=== PATIENT | female | born 1990 | race African-American/Black ===

== ENCOUNTER 2017-12-15 09:51 | Observation (INO) ==
[2017-12-15 10:22] LABS: BASOPHILS % (AUTO) 0.2 % (0.2-1.0); EOSINOPHILS # (AUTO) 0.1 x10^3/uL (0.0-0.2); EOSINOPHILS % (AUTO) 0.6 % (0.9-2.9); HEMATOCRIT 42.1 % (36.0-47.0); HEMOGLOBIN 14.9 g/dL (12.0-16.0); LYMPHOCYTES # (AUTO) 0.7 X10^3/uL (1.3-2.9); MEAN CORPUSCULAR HEMOGLOBIN 29.5 pg (27.0-34.0); MEAN CORPUSCULAR HGB CONC 35.4 g/dL (33.0-35.0); MEAN CORPUSCULAR VOLUME 83.5 fL (80.0-100.0); MEAN PLATELET VOLUME 10.4 fL (7.4-11.0); MONOCYTES # (AUTO) 0.4 x10^3/uL (0.3-0.8); MONOCYTES % (AUTO) 2.6 % (0.0-13.0); NEUTROPHILS # (AUTO) 15.5 x10^3/uL (2.2-4.8); NEUTROPHILS % (AUTO) 92.6 % (42.0-75.0); PLATELET COUNT 156 X10^3/uL (150.0-450.0); RED BLOOD COUNT 5.04 X10^6/uL (3.5-5.4); RED CELL DISTRIBUTION WIDTH 13.1 % (11.6-16.5); WHITE BLOOD COUNT 16.8 X10^3/uL (3.6-10.0)
[2017-12-15 10:31] LABS: PLATELET MORPHOLOGY COMMENT NORMAL (NORMAL)
--- NOTE | 2017-12-15 10:46 | DR.EXTPAIN ---
HPI - Time seen Time seen: 10:25 - PCP Primary Care Physician: [facility] - Complaint/Symptoms Chief Complaint Doctor Comments: Patient presents with complaint of right lower extremity is red swollen for few days and tender. She states that this has occured previous but the left lower extremity was involved. She also states that she has a family history of lymph edema of lower extreimty. Chief Complaint:: PT STATED HER RIGHT LOWER LEG STARTED SWELLING AND HURTING YESTERDAY. SHE STATED THIS HAPPEN LAST YEAR AND WAS IN THE HOSPITAL IN [place] FOR CELLULITIS - Source History Provided: Patient - Mode of arrival Mode of Arrival: Ambulatory - Timing Onset of Chief Complaint: 12/14/17 - Context History of: None - Associated signs and symptoms Associated Signs and Symptoms: Pain, Swelling PMH - PMH Past Medical History: No Past Medical History: Anemia Past Surgical History: Yes Surgical History: - Family History History of Family Medical Conditions: No Family Medical History: Cancer - Social History Does patient currently use any type of tobacco product: No Have you used tobacco products in the last 12 months: No Type of Tobacco Use: None How many years tobacco product used: 5 Does any household member use tobacco: No Alcohol Use: Rarely, Occasionally Do you use any recreational Drugs:: No Lives With: Family Lives Where: Home - infectious screening In the last 2 months have you had wt loss of >10#?: NO Have you had fever, night sweats or hemotysis?: No Have you traveled outside the country in the last 6 months?: No Isolation: Standard ROS - Review of Systems Eyes: No Symptoms Reported ENTM: No Symptoms Reported Respiratoy: No Symptoms Reported Cardiovascular: No Symptoms Reported Gastrointestinal/Abdominal: No Symptoms Reported Genitourinary: No Symptoms Reported Neurological: No Symptoms Reported Musculoskeletal: No Symptoms Reported Integumentary: Change in Color (right lower extremity) Hematologic/Lymphatic: No Symptoms Reported Endocrine: No Symptoms Reported Psychiatric: No Symptoms Reported PE - General Limitations: Physical Limitation (right leg pain) General Appearance: Alert, In No Apparent Distress - Head Head Exam: Normal Inspection, Atraumatic - Eyes Eye exam: Normal Appearance, PERRL, EOMI - ENT ENT Exam: Normal Exam - Neck Neck Exam: Normal Inspection, Full ROM - Chest Chest Inspection: Normal Inspection, Symmetric Chest Wall Rise - Respiratory Respiratory Exam: Bilateral Clear to Auscultation - Cardiovascular Cardiovascular Exam: Regular Rate, Normal Rhythm - Abdominal Exam Abdominal Exam: Normal Inspection, Normal Bowel Sounds Abdominal Tenderness: negative: RUQ, RLQ, LUQ, LLQ, Epigastrium, Suprapubic, Diffuse, Mild, Moderate, Severe, Other - Extremities Extremities Exam: Normal Inspection, Full ROM - Upper Extremities Shoulder Exam: Normal Inspection, Full ROM Arm Exam: Normal Inspection Elbow Exam: Normal Inspection Forearm Exam: Normal Inspection Hand Exam: Normal Inspection Neuromotor Exam: Normal Exam Neurosensory Exam: Normal Exam, Ulnar Nerve Upper Ext. Vascular Exam: Capillary Refill - Lower Extremities Hip/Pelvis Exam: Tenderness (right below knee 44.5cm cir), Erythema (right below knee) Upper Leg Exam: Normal Inspection Knee Exam: Normal Inspection Lower Leg Exam: Normal Inspection (39.5cm) Ankle Exam: Normal Inspection Foot/Toe Exam: Normal Inspection Neurovascular/Tendon Exam: Normal Capillary Refill Gait Exam: Observed and Normal - Back Back Exam: Normal Inspection - Neurological Neurological Exam: Alert, Oriented X3, CN II-XII Intact - Psychiatric Psychiatric Exam: Normal Affect, Normal Mood - Skin Skin Exam: Warm, Dry, Erythema (right below knee) - Vital Signs Vitals: Temperature 99.1 F Pulse Rate [Apical] 93 Pulse Rate 143 Respiratory Rate 20 Blood Pressure [Right Arm] 127/72 Blood Pressure [Left Arm] 105/59 Blood Pressure 99/60 O2 Sat by Pulse Oximetry 99 Course - Reevaluation 1st: Unchanged - Consultation Called: 13:35 (Dr Mendez agreed to admit ) ROR - Labs Reviewed Laboratory Results Reviewed?: Yes (low potassium) Result Diagrams: 12/15/17 10:10 12/15/17 10:40 - XRAY XRAY Interpreted by: Radiologist (Lower extremity negative for DVT) - EKG [place]: Normal Rhythm: NSR Block: None Hypertrophy: None ST: Normal - Labs Reviewed Laboratory: WBC 16.8 X10^3/uL (3.6-10.0) H 12/15/17 10:10 RBC 5.04 X10^6/uL (3.5-5.4) 12/15/17 10:10 Hgb 14.9 g/dL (12.0-16.0) 12/15/17 10:10 Hct 42.1 % (36.0-47.0) 12/15/17 10:10 MCV 83.5 fL (80.0-100.0) 12/15/17 10:10 MCH 29.5 pg (27.0-34.0) 12/15/17 10:10 MCHC 35.4 g/dL (33.0-35.0) H 12/15/17 10:10 RDW 13.1 % (11.6-16.5) 12/15/17 10:10 Plt Count 156 X10^3/uL (150.0-450.0) 12/15/17 10:10 Plt Count Comment Adequate (ADEQUATE) 12/15/17 10:10 MPV 10.4 fL (7.4-11.0) 12/15/17 10:10 Neut % (Auto) 92.6 % (42.0-75.0) H 12/15/17 10:10 Lymph % (Auto) 4.0 % (21.0-51.0) L 12/15/17 10:10 [place] % (Auto) 2.6 % (0.0-13.0) 12/15/17 10:10 Eos % (Auto) 0.6 % (0.9-2.9) L 12/15/17 10:10 Baso % (Auto) 0.2 % (0.2-1.0) 12/15/17 10:10 Neut # (Auto) 15.5 x10^3/uL (2.2-4.8) H 12/15/17 10:10 Lymph # (Auto) 0.7 X10^3/uL (1.3-2.9) L 12/15/17 10:10 [place] # (Auto) 0.4 x10^3/uL (0.3-0.8) 12/15/17 10:10 Eos # (Auto) 0.1 x10^3/uL (0.0-0.2) 12/15/17 10:10 Baso # (Auto) 0.0 X10^3/uL (0.0-0.1) 12/15/17 10:10 Absolute Nucleated RBC 0.0 /100WBC 12/15/17 10:10 Total Counted 100 12/15/17 10:10 Neutrophils % (Manual) 94 % (39-76) H 12/15/17 10:10 Lymphocytes % (Manual) 5 % (13-43) L 12/15/17 10:10 Monocytes % (Manual) 1 % (4-9) L 12/15/17 10:10 Plt Morphology Comment Normal (NORMAL) 12/15/17 10:10 RBC Morphology Normal (NORMAL) 12/15/17 10:10 D-Dimer 763 ng/mL (0-400) H* 12/15/17 10:40 Sodium 137 mmol/L (136-145) 12/15/17 10:40 Corrected Sodium 137 mmol/L (136-145) 12/15/17 10:40 Potassium 3.0 mmol/L (3.5-5.1) L* 12/15/17 10:40 Chloride 102 mmol/L (98-107) 12/15/17 10:40 Carbon Dioxide 28.4 mmol/L (21-32) 12/15/17 10:40 BUN 6 mg/dL (7-18) L 12/15/17 10:40 Creatinine 0.87 mg/dL (0.55-1.02) 12/15/17 10:40 Est GFR (MDRD) Af Amer > 60 (>60) 12/15/17 10:40 Est GFR (MDRD) Non-Af > 60 (>60) 12/15/17 10:40 Glucose 113 mg/dL (65-99) H 12/15/17 10:40 Calcium 8.6 mg/dL (8.5-10.1) 12/15/17 10:40 C-Reactive Protein 256.50 mg/L (0-3.0) H 12/15/17 10:40 - Diagnosis Discharge Problem: Cellulitis of right lower extremity, Hypokalemia - Discharge Plan Disposition: ADMITTED INPATIENT Condition: Stable - Follow ups/Referrals Follow ups/Referrals: ASHLI MEDRANO [Primary Care Provider] - 3 days - Instructions
[2017-12-15 10:59] LABS: BLOOD UREA NITROGEN 6 mg/dL (7-18); CALCIUM 8.6 mg/dL (8.5-10.1); CARBON DIOXIDE 28.4 mmol/L (21-32); CHLORIDE 102 mmol/L (98-107); COR NA(FOR HYPERGLY) 137 mmol/L (136-145); CREATININE 0.87 mg/dL (0.55-1.02); SODIUM 137 mmol/L (136-145); eGFR NON BLACK RACES > 60 (>60)
[2017-12-15] MEDS ORDERED: K-LYTE EFFERVESCENT PO ONE (11:54)
[2017-12-15] MEDS ORDERED: K-LYTE EFFERVESCENT ONE (11:59)
[2017-12-15] MEDS ORDERED: MORPHINE SULFATE INJ 4 MG IVP ONE (12:03)
[2017-12-15] MEDS ORDERED: MORPHINE SULFATE INJ 4 MG ONE (12:04)
[2017-12-15] MEDS ORDERED: K-DUR TAB 20 MEQ PO ONE ×2 (12:16→12:20)
[2017-12-15] MEDS ORDERED: MICRO K EXTEN CAP 10 MEQ PO ONE ×2 (12:17→12:20)
--- NOTE | 2017-12-15 13:15 | VAS ---
HISTORY: Right lower extremity swelling and redness Study: Bilateral lower extremity venous Doppler Comparison: None Technique: Multiple grayscale sonographic images were obtained. Color duplex Doppler evaluation was p erformed. Findings: Bilaterally there is patency of the common femoral veins, superficial femoral veins, popliteal veins. The examination is negative for deep venous thrombosis in both lower extremities. IMPRESSION: Exam bilaterally negative for deep venous thrombosis in the lower extremities Reported By:
[2017-12-15] MEDS ORDERED: MOTRIN TAB 600 MG PO PRN (13:51)
[2017-12-15] MEDS ORDERED: PHENERGAN TAB 25 MG PO PRN (13:51)
[2017-12-15] MEDS ORDERED: ZOFRAN INJ 4 MG VIAL IVP PRN (13:53)
[2017-12-15] MEDS ORDERED: POTASSIUM CHLORIDE IV SCH ×2 (14:00)
[2017-12-15] MEDS ORDERED: D5W IV SCH ×2 (14:00)
[2017-12-15 14:11] LABS: BILIRUBIN,URINE 1+ (NEGATIVE); BLOOD/HEMOGLOBIN,URINE 5+ (NEGATIVE); GLUCOSE, URINE NEGATIVE (NEGATIVE); KETONES,URINE 1+ (NEGATIVE); LEUKOCYTE ESTERASE ,URINE 1+ (NEGATIVE); NITRITES,URINE NEGATIVE (NEGATIVE); PROTEIN,URINE 2+ (NEGATIVE); UROBILINOGEN,URINE 3+ (NORMAL)
[2017-12-15 14:13] LABS: APPEARANCE,URINE HAZY (CLEAR); COLOR,URINE DARK YELLOW (YELLOW)
[2017-12-15 14:18] LABS: SQUAMOUS EPITHELIAL CELL,UR MODERATE /HPF (NEGATIVE)
[2017-12-15 14:19] LABS: BACTERIA,URINE TRACE /HPF (NEGATIVE); MUCUS,URINE MODERATE /HPF (NEGATIVE)
[2017-12-15] MEDS ORDERED: NS 1/2 + KCL 20 MEQ/L 0 ML IV ONE (14:37)
[2017-12-15] MEDS ORDERED: VANCOMYCIN HCL 1 GM VIAL ONE (14:41)
[2017-12-15] MEDS ORDERED: D5W 250 ML IV 250 ML IV ONE (14:42)
[2017-12-15] MEDS: VANCOMYCIN HCL 1 GM VIAL 1 G in D5W 250 ML IV 250 ML IV SCH ×2 (14:43→21:32)
[2017-12-15] MEDS: NS + KCL 20 MEQ/L 1,000 ML IV SCH ×2 (14:44→23:00)
[2017-12-15 15:28] VITALS: BMI 41.3
[2017-12-15] MEDS ORDERED: POTASSIUM CHL 60 MEQ/NS 0.45% 500 ML IV PRN (15:52)
[2017-12-15] MEDS ORDERED: K-RIDER 10 MEQ/NS 100 ML 10 MEQ/100 ML BAG IV PRN (15:52)
[2017-12-15] MEDS ORDERED: K-LYTE EFFERVESCENT PO PRN ×2 (15:52→15:53)
[2017-12-15] MEDS ORDERED: POTASSIUM CHL 40 MEQ/NS 0.45% 500 ML IV PRN (15:52)
[2017-12-15] MEDS ORDERED: POTASSIUM CHLORIDE LIQ 20 MEQ UDC PO PRN ×2 (15:52→15:53)
[2017-12-15] MEDS ORDERED: K-DUR TAB 20 MEQ PO PRN (15:53)
[2017-12-15] MEDS: MORPHINE SULFATE INJ 4 MG IVP PRN (22:58)
[2017-12-16] MEDS: NS + KCL 20 MEQ/L 1,000 ML IV SCH (06:03)
[2017-12-16 06:09] LABS: BASOPHILS % (AUTO) 0.3 % (0.2-1.0); EOSINOPHILS # (AUTO) 0.5 x10^3/uL (0.0-0.2); EOSINOPHILS % (AUTO) 4.4 % (0.9-2.9); HEMATOCRIT 41.5 % (36.0-47.0); HEMOGLOBIN 14.3 g/dL (12.0-16.0); LYMPHOCYTES # (AUTO) 1.4 X10^3/uL (1.3-2.9); LYMPHOCYTES % (AUTO) 12.2 % (21.0-51.0); MEAN CORPUSCULAR HEMOGLOBIN 29.1 pg (27.0-34.0); MEAN CORPUSCULAR HGB CONC 34.5 g/dL (33.0-35.0); MEAN CORPUSCULAR VOLUME 84.3 fL (80.0-100.0); MEAN PLATELET VOLUME 10.8 fL (7.4-11.0); MONOCYTES # (AUTO) 0.6 x10^3/uL (0.3-0.8); MONOCYTES % (AUTO) 5.5 % (0.0-13.0); NEUTROPHILS % (AUTO) 77.6 % (42.0-75.0); PLATELET COUNT 137 X10^3/uL (150.0-450.0); RED BLOOD COUNT 4.93 X10^6/uL (3.5-5.4); RED CELL DISTRIBUTION WIDTH 13.2 % (11.6-16.5); WHITE BLOOD COUNT 11.6 X10^3/uL (3.6-10.0)
[2017-12-16 06:23] LABS: PLATELET MORPHOLOGY COMMENT NORMAL (NORMAL)
[2017-12-16 07:09] LABS: ALANINE AMINOTRANSFERASE 15 Units/L (12-78); ALBUMIN 2.6 g/dL (3.4-5.0); ALKALINE PHOSPHATASE 53 Units/L (46-116); ASPARTATE AMINO TRANSFERASE 14 Units/L (15-37); BLOOD UREA NITROGEN 7 mg/dL (7-18); CALCIUM 8.5 mg/dL (8.5-10.1); CARBON DIOXIDE 20.8 mmol/L (21-32); CHLORIDE 106 mmol/L (98-107); COR CA(FOR HYPOALB) 9.6 mg/dL (8.5-10.1); CREATININE 0.66 mg/dL (0.55-1.02); SODIUM 137 mmol/L (136-145); TOTAL PROTEIN 6.6 g/dL (6.4-8.2); eGFR NON BLACK RACES > 60 (>60)
[2017-12-16] MEDS: VANCOMYCIN HCL 1 GM VIAL 1 G in D5W 250 ML IV 250 ML IV SCH ×2 (08:29→23:55)
[2017-12-16] MEDS: MORPHINE SULFATE INJ 4 MG IVP PRN ×3 (08:30→23:00)
[2017-12-16 23:42] LABS: CREATININE 0.71 mg/dL (0.55-1.02); VANCOMYCIN,TROUGH 3.3 ug/mL (15-20)
[2017-12-17] MEDS ORDERED: BENADRYL CAP/TAB 25 MG PO ONE ×2 (02:09→15:25)
[2017-12-17 05:29] LABS: BASOPHILS % (AUTO) 0.4 % (0.2-1.0); EOSINOPHILS # (AUTO) 0.4 x10^3/uL (0.0-0.2); HEMATOCRIT 38.9 % (36.0-47.0); HEMOGLOBIN 13.5 g/dL (12.0-16.0); LYMPHOCYTES # (AUTO) 1.2 X10^3/uL (1.3-2.9); LYMPHOCYTES % (AUTO) 15.8 % (21.0-51.0); MEAN CORPUSCULAR HEMOGLOBIN 29.1 pg (27.0-34.0); MEAN CORPUSCULAR HGB CONC 34.8 g/dL (33.0-35.0); MEAN CORPUSCULAR VOLUME 83.5 fL (80.0-100.0); MEAN PLATELET VOLUME 10.5 fL (7.4-11.0); MONOCYTES # (AUTO) 0.6 x10^3/uL (0.3-0.8); MONOCYTES % (AUTO) 7.5 % (0.0-13.0); NEUTROPHILS # (AUTO) 5.2 x10^3/uL (2.2-4.8); NEUTROPHILS % (AUTO) 71.3 % (42.0-75.0); PLATELET COUNT 168 X10^3/uL (150.0-450.0); RED BLOOD COUNT 4.66 X10^6/uL (3.5-5.4); RED CELL DISTRIBUTION WIDTH 13.3 % (11.6-16.5); WHITE BLOOD COUNT 7.4 X10^3/uL (3.6-10.0)
[2017-12-17 05:54] LABS: ALANINE AMINOTRANSFERASE 31 Units/L (12-78); ALBUMIN 2.5 g/dL (3.4-5.0); ALKALINE PHOSPHATASE 54 Units/L (46-116); ASPARTATE AMINO TRANSFERASE 14 Units/L (15-37); BLOOD UREA NITROGEN 4 mg/dL (7-18); CALCIUM 8.3 mg/dL (8.5-10.1); CARBON DIOXIDE 23.3 mmol/L (21-32); CHLORIDE 106 mmol/L (98-107); COR CA(FOR HYPOALB) 9.5 mg/dL (8.5-10.1); CREATININE 0.57 mg/dL (0.55-1.02); SODIUM 138 mmol/L (136-145); TOTAL PROTEIN 6.2 g/dL (6.4-8.2); eGFR NON BLACK RACES > 60 (>60)
[2017-12-17] MEDS: MORPHINE SULFATE INJ 4 MG IVP PRN ×2 (07:48→14:52)
[2017-12-17] MEDS: VANCOMYCIN HCL 1 GM VIAL 1 G in D5W 250 ML IV 250 ML IV SCH (08:35)
[2017-12-17] MEDS: VANCOMYCIN HCL 1 GM VIAL 1 G, VANCOMYCIN HCL 500 MG VIAL 250 MG in D5W 250 ML IV 250 ML IV SCH ×2 (12:20→21:28)
--- NOTE | 2017-12-17 17:53 | DR.H&P ---
H&P - History & Physical for Day of: H&P Date: 12/15/17 - Chief Complaint Chief Complaint: RLE PAIN REDNESS AND SWELLING - History of Present Illness History of Present Illness: 27 BF ER ADMISSION FOR NEW ONSET RLE REDNESS,EDEMA AND PAIN, DENIES INJURY. PT STATES SHE HAD SAME EPISODE THIS TIME LAST YEAR WITH CELLULITIS TO LOWER EXTREMITIES. PT CO HX OF "BAD VEINS". PT DENIES ANY HX OF DVT OR DIABETES. PT HAD NEGATIVE VENOUS DOPPLER IN ED. PT ADMITTED FOR IV ATBX - Past Medical History Past Medical History: Anemia - Past Surgical History Surgical History: , Other - Family History Family Medical History: Diabetes Mellitus, Cancer, Hypertension - Social History Does patient currently use any type of tobacco product: Yes Have you used tobacco products in the last 12 months: Yes Type of Tobacco Use: Cigarettes How many years tobacco product used: 5 Does any household member use tobacco: No Alcohol Use: Occasionally Drug Use: Prescription Drugs - Medications Home Medications: No Known Drug Allergies Allergy (Verified 12/15/17 09:55) CONTINUE taking the following medications NK 12/16/17 [History] - Review of Systems Constitutional: Fever Eyes: No Symptoms Reported ENT: No Symptoms Reported Respiratory: No Symptoms Reported Cardiovascular: No Symptoms Reported Gastrointestinal: No Symptoms Reported Genitourinary: No Symptoms Reported Musculoskeletal: Leg Pain Skin: Rash Neurological: No Symptoms Reported - Physical Exam Vital Signs: Temperature 97.6 F Pulse Rate [Apical] 72 Pulse Rate 143 Respiratory Rate 20 Blood Pressure [Right Arm] 110/59 Blood Pressure [Left Arm] 123/59 Blood Pressure 99/60 O2 Sat by Pulse Oximetry 100 Oriented: Normal Ear: Normal Nose: Normal Throat: Normal Respiratory: Clear Throughout Cardiovascular: Edema : Normal Auscultation: Bowel Sounds: Normal Palpation: Normal Tenderness: Normal Skin: Rash, Red, Tender, Hot (LOCALIZED TO RLE) Musculoskeletal: Right, Thigh, Knee, Leg, Ankle Psychiatric: Normal Mood Description: Calm Speech Pattern: Clear, Appropriate - Assessment/Plan (1) Cellulitis of right lower extremity Status: Acute Plan: ADMIT BLOOD CULTURES ON ADMISSION. US RLE ON ADMISSION. IV ATBX, REPEAT AM LABS (2) Venous insufficiency Status: Acute (3) Morbid obesity Status: Acute - Allergies Allergies/Adverse Reactions: Allergies Allergy/AdvReac Type Severity Reaction Status Date / Time No Known Drug Allergies Allergy Verified 12/15/17 09:55
--- NOTE | 2017-12-17 17:56 | PCM.PROG ---
Progress Note - Progress Note for Day of Date: 12/17/17 - Subjective Subjective: 27 BF ER ADMISSION WITH RLE CELLULITIS, NEGATIVE FOR DVT. PT CURRENTLY ON IV ATBX WITH IMPROVING EDEMA AND WBC'S. PT STATES PAIN WAS UP INTO RIGHT GROIN AND MOVED DOWN TO RLE. PT CO SIMILAR ONE YEAR AGO. - Past Medical Family Social History Past Med/Fam/Surg Hx: No changes since H&P Allergies: Allergies No Known Drug Allergies Allergy (Verified 12/15/17 09:55) - Vital Signs and I&O's Vital Signs: Temperature 97.6 F Pulse Rate [Apical] 72 Pulse Rate 143 Respiratory Rate 20 Blood Pressure [Right Arm] 110/59 Blood Pressure [Left Arm] 123/59 Blood Pressure 99/60 O2 Sat by Pulse Oximetry 100 Intake and Output: Intake & Output 12/15/17 12/16/17 12/17/17 12/18/17 11:59 11:59 11:59 11:59 Intake Total 2127 1580 / 1580 620 / 620 Balance 2127 1580 / 1580 620 / 620 - Physical Exam Oriented: Normal Ear: Normal Nose: Normal Throat: Normal Respiratory: Normal Cardiovascular: Edema : Normal Auscultation: Bowel Sounds: Normal Tenderness: Normal Skin: Rash, Red, Tender, Hot (LOCALIZED TO RLE) Musculoskeletal: Right, Thigh, Knee, Leg, Ankle Psychiatric: Normal Mood Description: Calm Speech Pattern: Clear, Appropriate - Laboratory and Diagnostics Result Diagrams: 12/17/17 04:45 12/17/17 04:45 Labs: 12/15/17 13:55 Blood Blood Culture - Preliminary 12/15/17 13:52 Blood Blood Culture - Preliminary Laboratory WBC 7.4 X10^3/uL (3.6-10.0) 12/17/17 04:45 RBC 4.66 X10^6/uL (3.5-5.4) 12/17/17 04:45 Hgb 13.5 g/dL (12.0-16.0) 12/17/17 04:45 Hct 38.9 % (36.0-47.0) 12/17/17 04:45 MCV 83.5 fL (80.0-100.0) 12/17/17 04:45 MCH 29.1 pg (27.0-34.0) 12/17/17 04:45 MCHC 34.8 g/dL (33.0-35.0) 12/17/17 04:45 RDW 13.3 % (11.6-16.5) 12/17/17 04:45 Plt Count 168 X10^3/uL (150.0-450.0) 12/17/17 04:45 Plt Count Comment Decreased (ADEQUATE) A 12/16/17 05:38 MPV 10.5 fL (7.4-11.0) 12/17/17 04:45 Neut % (Auto) 71.3 % (42.0-75.0) 12/17/17 04:45 Lymph % (Auto) 15.8 % (21.0-51.0) L 12/17/17 04:45 [place] % (Auto) 7.5 % (0.0-13.0) 12/17/17 04:45 Eos % (Auto) 5.0 % (0.9-2.9) H 12/17/17 04:45 Baso % (Auto) 0.4 % (0.2-1.0) 12/17/17 04:45 Neut # (Auto) 5.2 x10^3/uL (2.2-4.8) H 12/17/17 04:45 Lymph # (Auto) 1.2 X10^3/uL (1.3-2.9) L 12/17/17 04:45 [place] # (Auto) 0.6 x10^3/uL (0.3-0.8) 12/17/17 04:45 Eos # (Auto) 0.4 x10^3/uL (0.0-0.2) H 12/17/17 04:45 Baso # (Auto) 0.0 X10^3/uL (0.0-0.1) 12/17/17 04:45 Absolute Nucleated RBC 0.0 /100WBC 12/17/17 04:45 Total Counted 100 12/15/17 10:10 Neutrophils % (Manual) 94 % (39-76) H 12/15/17 10:10 Lymphocytes % (Manual) 5 % (13-43) L 12/15/17 10:10 Monocytes % (Manual) 1 % (4-9) L 12/15/17 10:10 Plt Morphology Comment Normal (NORMAL) 12/16/17 05:38 RBC Morphology Normal (NORMAL) 12/16/17 05:38 D-Dimer 763 ng/mL (0-400) H* 12/15/17 10:40 Sodium 138 mmol/L (136-145) 12/17/17 04:45 Corrected Sodium TNP 12/17/17 04:45 Potassium 3.8 mmol/L (3.5-5.1) 12/17/17 04:45 Chloride 106 mmol/L (98-107) 12/17/17 04:45 Carbon Dioxide 23.3 mmol/L (21-32) 12/17/17 04:45 BUN 4 mg/dL (7-18) L 12/17/17 04:45 Creatinine 0.57 mg/dL (0.55-1.02) 12/17/17 04:45 Est GFR (MDRD) Af Amer > 60 (>60) 12/17/17 04:45 Est GFR (MDRD) Non-Af > 60 (>60) 12/17/17 04:45 Glucose 84 mg/dL (65-99) 12/17/17 04:45 Calcium 8.3 mg/dL (8.5-10.1) L 12/17/17 04:45 Corrected Calcium 9.5 mg/dL (8.5-10.1) 12/17/17 04:45 Magnesium 1.7 mg/dL (1.7-2.9) 12/15/17 15:15 Total Bilirubin 0.50 mg/dL (0.2-1.0) 12/17/17 04:45 AST 14 Units/L (15-37) L 12/17/17 04:45 ALT 31 Units/L (12-78) 12/17/17 04:45 Alkaline Phosphatase 54 Units/L (46-116) 12/17/17 04:45 C-Reactive Protein 256.50 mg/L (0-3.0) H 12/15/17 10:40 Total Protein 6.2 g/dL (6.4-8.2) L 12/17/17 04:45 Albumin 2.5 g/dL (3.4-5.0) L 12/17/17 04:45 Globulin 3.7 g/dL (2.5-4.5) 12/17/17 04:45 Albumin/Globulin Ratio 0.7 Ratio (1.1-2.1) L 12/17/17 04:45 Specimen Type Random urine 12/15/17 13:38 Urine Color Dark yellow (YELLOW) 12/15/17 13:38 Urine Appearance Hazy (CLEAR) 12/15/17 13:38 Urine pH 6.0 (5.0 - 8.0) 12/15/17 13:38 Ur Specific [place] 1.020 (1.000-1.030) 12/15/17 13:38 Urine Protein 2+ (NEGATIVE) 12/15/17 13:38 Urine Glucose (UA) Negative (NEGATIVE) 12/15/17 13:38 Urine Ketones 1+ (NEGATIVE) 12/15/17 13:38 Urine Occult Blood 5+ (NEGATIVE) 12/15/17 13:38 Urine Nitrite Negative (NEGATIVE) 12/15/17 13:38 Urine Bilirubin 1+ (NEGATIVE) 12/15/17 13:38 Urine Urobilinogen 3+ (NORMAL) 12/15/17 13:38 Ur Leukocyte Esterase 1+ (NEGATIVE) 12/15/17 13:38 Urine RBC 3-5 /HPF (NONE SEEN) 12/15/17 13:38 Urine WBC 3-5 /HPF (NONE SEEN) 12/15/17 13:38 Ur Squamous Epith Cells Moderate /HPF (NEGATIVE) 12/15/17 13:38 Urine Bacteria Trace /HPF (NEGATIVE) 12/15/17 13:38 Urine Mucus Moderate /HPF (NEGATIVE) 12/15/17 13:38 Ur Culture Indicated? No/not indicated 12/15/17 13:38 Vancomycin Trough 3.3 ug/mL (15-20) L 12/16/17 23:20 - Plan (1) Cellulitis of right lower extremity Status: Acute Plan: BLOOD CULTURES ON ADMISSION. US RLE ON ADMISSION. IV ATBX, REPEAT AM LABS, CT RLE WITH CONTRAST R/O OBSTRUCTIVE ADENOPATHY INCLUDING INGUINAL AREA (2) Venous insufficiency Status: Acute (3) Morbid obesity Status: Acute
--- NOTE | 2017-12-17 18:05 | CT ---
CT angiogram bilateral lower extremity with and without contrast Indication: Right lower leg pain and cellulitis. History of brain surgery in the past. Technique: Helical images through the right lower extremity and left lower extremity before and after IV contrast from the mid abdomen through the feet. Coronal and sagittal reformats provided. MIP imag es provided. Findings: Abdomen: Noncontrast imaging shows no aortic calcifications. No renal stone identified. Post-contrast imaging shows normal enhancement of the visualized solid organs including the partially visualized l iver, gallbladder, spleen, adrenal glands and kidneys. Portions of the pancreas and stomach appear no rmal. Small bowel and colon show no acute abnormality. The appendix is normal. Pelvis: The urinary bladder and rectum are normal. IUD projects over the uterus as expected. No adnex al region lesions seen. Bilateral lower extremities: There is soft tissue swelling anterior to the right mid tibia tracking t owards the ankle, with swelling over the dorsum of the right foot. Review of bone windows shows no destructive osseous lesion or evidence of osteomyelitis. Angiogram: The aorta and branch vessels are patent without dissection, aneurysm or plaque. The iliac vessels are normal. The bilateral common femoral arteries and superficial femoral arteries are patent throughout their le ngths. Bilateral popliteal arteries are normal. Left lower extremity: The anterior tibial artery and common peroneal trunk are normal. The there is t hree-vessel runoff to the ankle with patent dorsalis pedis and plantar arch Right lower extremity: Common peroneal trunk, anterior tibial artery are patent. Two vessel runoff to the ankle seen, with normal plantar arch and dorsalis pedis. Ligaments and tendons about the ankles appear normal. Fluid is seen anterior to the ankle extending anterior to the tibia to the mid calf and over the dors um of the forefoot, relatively non organized. No convincing drainable abscess seen. Impression: 1. Right lower extremity soft tissue swelling from the mid anterior tibial subcutaneous fat to the do rsum of the foot. Fluid collections may be beginning to develop but no peripherally enhancing measura ble collection is currently identified. Targeted ultrasound would be helpful in evaluating for develo ping abscess versus phlegmon. Cellulitis is favored, without osteomyelitis. Close clinical and imagin g follow-up. Abscess development may be occurring 2. Angiogram is normal without occluded vessel identified Reported By:
[2017-12-18] MEDS: VANCOMYCIN HCL 1 GM VIAL 1 G, VANCOMYCIN HCL 500 MG VIAL 250 MG in D5W 250 ML IV 250 ML IV SCH ×2 (05:06→13:54)
[2017-12-18 06:27] LABS: BASOPHILS % (AUTO) 0.4 % (0.2-1.0); EOSINOPHILS # (AUTO) 0.4 x10^3/uL (0.0-0.2); EOSINOPHILS % (AUTO) 7.1 % (0.9-2.9); HEMATOCRIT 40.5 % (36.0-47.0); HEMOGLOBIN 14.2 g/dL (12.0-16.0); LYMPHOCYTES # (AUTO) 1.1 X10^3/uL (1.3-2.9); MEAN CORPUSCULAR HEMOGLOBIN 29.4 pg (27.0-34.0); MEAN CORPUSCULAR HGB CONC 35.1 g/dL (33.0-35.0); MEAN CORPUSCULAR VOLUME 83.6 fL (80.0-100.0); MEAN PLATELET VOLUME 9.8 fL (7.4-11.0); MONOCYTES # (AUTO) 0.4 x10^3/uL (0.3-0.8); MONOCYTES % (AUTO) 7.8 % (0.0-13.0); NEUTROPHILS # (AUTO) 3.7 x10^3/uL (2.2-4.8); NEUTROPHILS % (AUTO) 64.7 % (42.0-75.0); PLATELET COUNT 205 X10^3/uL (150.0-450.0); RED BLOOD COUNT 4.84 X10^6/uL (3.5-5.4); RED CELL DISTRIBUTION WIDTH 13.1 % (11.6-16.5); WHITE BLOOD COUNT 5.7 X10^3/uL (3.6-10.0)
[2017-12-18 06:39] LABS: ALANINE AMINOTRANSFERASE 18 Units/L (12-78); ALBUMIN 2.7 g/dL (3.4-5.0); ALKALINE PHOSPHATASE 56 Units/L (46-116); ASPARTATE AMINO TRANSFERASE 15 Units/L (15-37); BLOOD UREA NITROGEN 3 mg/dL (7-18); CALCIUM 8.4 mg/dL (8.5-10.1); CARBON DIOXIDE 25.1 mmol/L (21-32); CHLORIDE 105 mmol/L (98-107); COR CA(FOR HYPOALB) 9.4 mg/dL (8.5-10.1); CREATININE 0.66 mg/dL (0.55-1.02); SODIUM 138 mmol/L (136-145); TOTAL PROTEIN 6.9 g/dL (6.4-8.2); eGFR NON BLACK RACES > 60 (>60)
[2017-12-18 16:34] VITALS: BP 113/79
== END 2017-12-18 16:23 | disposition home or self-care (01) ==
LOC: ER 09:54 → MED/SURG 09:54
PROVIDERS: ADMIT Internal Medicine; ATTEND Internal Medicine
DX: L03.115 Cellulitis of right lower limb; E66.01 Morbid (severe) obesity due to excess calories; E87.1 Hypo-osmolality and hyponatremia; R60.0 Localized edema; I87.2 Venous insufficiency (chronic) (peripheral)
CPT/HCPCS: 36415; 73706; 80048; 80053; 80202; 81001; 82565; 83735; 84132; 85025; 85378; 86140; 87040; 93970; 96365; 96374; 99283; 99284; A4216; A4222; J7030; G0378; J2270; J3370; J3480; J7060; J8499

== ENCOUNTER 2019-10-08 06:38 | Inpatient (IN) ==
[2019-10-08] MEDS ORDERED: LR 1000 ML IV 1,000 ML IV ONE ×2 (06:47→06:58)
[2019-10-08] MEDS ORDERED: ANCEF 1 GRAM IV PREMIX* 2 G/100 ML BAG IV ONE (06:47)
[2019-10-08] MEDS ORDERED: DILAUDID INJ ONE (06:58)
[2019-10-08] MEDS ORDERED: D5 1/2 NS 1L W PITOCIN 20 UNITS/L 20 UNITS/1,000 ML BAG IV ONE (06:59)
[2019-10-08] MEDS ORDERED: D5 1/2 NS 1000 ML 1,000 ML IV SCH (07:07)
[2019-10-08] MEDS ORDERED: ANCEF VIAL 1 GRAM IVP ONE (07:07)
[2019-10-08] MEDS ORDERED: XYLOCAINE-MPF 1% ONE (07:10)
[2019-10-08] MEDS ORDERED: REGLAN INJ 10 MG VIAL IVP PRN ×2 (09:02→12:23)
[2019-10-08] MEDS ORDERED: ZOFRAN INJ 4 MG VIAL IVP PRN ×2 (09:02→12:23)
[2019-10-08] MEDS ORDERED: PHENERGAN INJ 25 MG IM PRN (09:02)
[2019-10-08] MEDS ORDERED: BENADRYL INJ 50 MG VIAL IVP PRN ×2 (09:02→12:23)
[2019-10-08] MEDS ORDERED: DROPERIDOL ONE (09:15)
[2019-10-08] MEDS ORDERED: PHENERGAN INJ 25 MG IM ONE (09:26)
[2019-10-08] MEDS ORDERED: ZOFRAN INJ 4 MG VIAL ONE (09:30)
[2019-10-08] MEDS ORDERED: XYLOCAINE 2 % (PLAIN) ONE (09:30)
[2019-10-08] MEDS ORDERED: PITOCIN ONE (09:30)
[2019-10-08] MEDS ORDERED: DIPRIVAN VIAL ONE (09:30)
[2019-10-08] MEDS ORDERED: NEO-SYNEPHRINE INJ ONE (09:30)
[2019-10-08] MEDS ORDERED: NS IRRIGATION* 500 ML IR ONE (10:52)
[2019-10-08] MEDS ORDERED: PERCOCET TAB 5/325 MG PO PRN (12:23)
[2019-10-08] MEDS ORDERED: MYLICON TAB 80 MG CHEW PO PRN (12:23)
[2019-10-08] MEDS ORDERED: ADACEL or BOOSTRIX TDaP VACCINE IM ONE (12:23)
[2019-10-08] MEDS ORDERED: D5 1/2 NS 1000 ML 1,000 ML with PITOCIN 20 UNITS IV SCH ×2 (12:23)
[2019-10-08] MEDS ORDERED: NARCAN INJ IVP PRN (12:23)
[2019-10-08] MEDS: TORADOL 30 MG VIAL IVP PRN ×2 (15:00→21:36)
[2019-10-09] MEDS: TORADOL 30 MG VIAL IVP PRN (04:43)
[2019-10-09 05:39] LABS: HEMATOCRIT 32.8 % (36.0-47.0); HEMOGLOBIN 11.6 g/dL (12.0-16.0)
[2019-10-09] MEDS: PRENATAL PLUS PO SCH (09:59)
[2019-10-09] MEDS: MILK OF MAGNESIA PO SCH ×2 (09:59→20:42)
[2019-10-09] MEDS: COLACE CAP 100 MG PO SCH ×2 (09:59→20:42)
[2019-10-09] MEDS: MOTRIN TAB 800 MG PO PRN (12:34)
[2019-10-09] MEDS: BACTROBAN CREAM TOP SCH ×2 (15:06→21:37)
[2019-10-09] MEDS: PERCOCET TAB 5/325 MG PO PRN ×2 (15:07→20:42)
[2019-10-10] MEDS: PERCOCET TAB 5/325 MG PO PRN (04:33)
[2019-10-10] MEDS: BACTROBAN CREAM TOP SCH (05:49)
[2019-10-10] MEDS: COLACE CAP 100 MG PO SCH ×2 (08:33)
[2019-10-10] MEDS: MILK OF MAGNESIA PO SCH ×2 (08:33)
[2019-10-10] MEDS: PRENATAL PLUS PO SCH (08:33)
[2019-10-10] MEDS: MOTRIN TAB 800 MG PO PRN (11:03)
[2019-10-10 12:21] VITALS: BP 122/62
== END 2019-10-10 13:30 | disposition home or self-care (01) | DRG 784 ==
LOC: LD 06:38 → MED/SURG 09:30
PROVIDERS: ADMIT Specialist; ATTEND Specialist
DX: Z30.2 Encounter for sterilization; B95.1 Streptococcus, group B, as the cause of diseases classified elsewhere; Z01.818 Encounter for other preprocedural examination; O34.211 Maternal care for low transverse scar from previous cesarean delivery; Z23 Encounter for immunization; Z14.1 Cystic fibrosis carrier; R87.619 Unspecified abnormal cytological findings in specimens from cervix uteri; Z3A.39 39 weeks gestation of pregnancy; O98.313 Other infections with a predominantly sexual mode of transmission complicating pregnancy, third trimester; O99.824 Streptococcus B carrier state complicating childbirth; N85.8 Other specified noninflammatory disorders of uterus; Z37.0 Single live birth; O26.893 Other specified pregnancy related conditions, third trimester